=== PATIENT | female | born 1950 | race Caucasian/White ===

== ENCOUNTER 2017-11-25 11:16 | Outpatient (CLI) | payer MEDICARE, MEDICAID ==
[~2017-11-25 11:16] MED LIST: ALBU2.5V13 NEB; ALBU8HFA PO; ATOR40TA PO; BLAC540C4 PO; BUPR300T54 PO; CLON1TAB9 PO; CLOP75TA15 PO; ECHI400C17 PO; GABA-341 PO; LEVE500T PO; LEVO100T PO; MONT10TA21 PO; NITR0.4T51 SL; OMEP-84 PO; TRAZ-91 PO; oxygen
== END 2017-11-25 23:59 | disposition home or self-care (01) ==
LOC: RAD 11:16
PROVIDERS: ATTEND Family Medicine
DX: J44.9 Chronic obstructive pulmonary disease, unspecified (principal); I10 Essential (primary) hypertension; F17.200 Nicotine dependence, unspecified, uncomplicated; Z86.73 Personal history of transient ischemic attack (TIA), and cerebral infarction without residual deficits
CPT/HCPCS: 70551

== ENCOUNTER 2017-11-25 13:23 | Emergency (ER) | payer MEDICARE, MEDICAID ==
[~2017-11-25] VITALS: Ht 175.3 cm; Wt 81.8 kg
[2017-11-25 13:44] LABS: BASOPHILS % (AUTO) 0 % (0-1); EOSINOPHILS % (AUTO) 0.5 % (0-6); HEMATOCRIT 35.2 % (35.0-45.0); HEMOGLOBIN 11.6 g/dl (12.0-16.0); LYMPHOCYTES # (AUTO) 1.5 X10'3 (1.1-4.8); LYMPHOCYTES % (AUTO) 22.1 % (21-51); MEAN CORPUSCULAR HEMOGLOBIN 29.6 PG (27.0-31.0); MEAN CORPUSCULAR VOLUME 89.6 FL (78-98); MEAN PLATELET VOLUME 8.8 FL (7.4-10.4); MONOCYTES # (AUTO) 0.5 X10'3 (0-0.9); MONOCYTES % (AUTO) 8.3 % (2-12); NEUTROPHILS # (AUTO) 4.6 X10'3 (1.8-7.7); NEUTROPHILS % (AUTO) 69.1 % (42-75); PLATELET COUNT 201 X10'3 (140-440); RED BLOOD COUNT 3.93 X10'6 (4.20-5.60); RED CELL DISTRIBUTION WIDTH 16.5 % (11.5-14.5); WHITE BLOOD COUNT 6.6 X10'3 (4.5-11.0)
[2017-11-25 13:54] LABS: PARTIAL THROMBOPLASTIN TIME 26 SECONDS (22-32); PROTHROMBIN TIME 10.7 SECONDS (9.0-12.0)
[2017-11-25] MEDS ORDERED: nitroGLYCERIN 0.4mg SUBLingual tab SL PRN (13:55)
[2017-11-25] MEDS ORDERED: aspirin 81mg tab.chew PO ONE (13:55)
[2017-11-25 14:00] LABS: ALANINE AMINOTRANSFERASE 31 U/L (12-78); ALBUMIN 3.7 G/DL (3.4-5.0); ALBUMIN/GLOBULIN RATIO 1.3 (1.1-1.5); ALKALINE PHOSPHATASE 77 IU/L (46-116); ANION GAP 5 (8-16); ASPARTATE AMINO TRANSFERASE 37 U/L (10-37); BILIRUBIN,TOTAL 0.4 MG/DL (0.1-1.0); BLOOD UREA NITROGEN 13 MG/DL (7-18); BUN/CREATININE RATIO 12.4 (6.6-38.0); CALCIUM 9.1 MG/DL (8.5-10.1); CHLORIDE 107 MMOL/L (99-107); CREATININE 1.05 MG/DL (0.40-0.90); GLUCOSE 97 MG/DL (70-104); POTASSIUM 3.8 MMOL/L (3.5-5.1); SODIUM 140 MMOL/L (135-145); TOTAL CARBON DIOXIDE 27.6 MMOL/L (24-32); TOTAL PROTEIN 6.5 G/DL (6.4-8.2); eGFR 52 ML/MIN
[2017-11-25] MEDS ORDERED: LORazepam 2 mg/ml vial IV ONE (14:15)
[2017-11-25 17:18] VITALS: BP 138/78
== END 2017-11-25 17:21 | disposition home or self-care (01) ==
LOC: ER 13:23
DX: R07.9 Chest pain, unspecified (principal); I10 Essential (primary) hypertension; J44.9 Chronic obstructive pulmonary disease, unspecified; Z90.49 Acquired absence of other specified parts of digestive tract; Z88.8 Allergy status to other drugs, medicaments and biological substances; Z79.899 Other long term (current) drug therapy
CPT/HCPCS: 36415; 71045; 80053; 84484; 85025; 85610; 85730; 93005; 96374; 99285; J2060

== ENCOUNTER 2017-12-31 20:18 | Inpatient (IN) | payer MEDICARE, MEDICAID ==
[~2017-12-31] VITALS: Ht 170.2 cm; Wt 90.0 kg
[2017-12-31 20:55] LABS: BASOPHILS % (AUTO) 0.2 % (0-1); EOSINOPHILS # (AUTO) 0.1 X10'3 (0-0.9); EOSINOPHILS % (AUTO) 1.2 % (0-6); HEMOGLOBIN 10.6 g/dl (12.0-16.0); LYMPHOCYTES # (AUTO) 1.4 X10'3 (1.1-4.8); LYMPHOCYTES % (AUTO) 24.9 % (21-51); MEAN CORPUSCULAR HEMOGLOBIN 30.5 PG (27.0-31.0); MEAN CORPUSCULAR VOLUME 92.6 FL (78-98); MEAN PLATELET VOLUME 8.2 FL (7.4-10.4); MONOCYTES # (AUTO) 0.5 X10'3 (0-0.9); NEUTROPHILS # (AUTO) 3.8 X10'3 (1.8-7.7); NEUTROPHILS % (AUTO) 65.7 % (42-75); PLATELET COUNT 212 X10'3 (140-440); RED BLOOD COUNT 3.46 X10'6 (4.20-5.60); RED CELL DISTRIBUTION WIDTH 20.3 % (11.5-14.5); WHITE BLOOD COUNT 5.7 X10'3 (4.5-11.0)
[2017-12-31 21:05] LABS: INR 1.1 INR; PARTIAL THROMBOPLASTIN TIME 26 SECONDS (22-32); PROTHROMBIN TIME 10.9 SECONDS (9.0-12.0)
[2017-12-31 21:10] LABS: ALANINE AMINOTRANSFERASE 18 U/L (12-78); ALBUMIN 3.4 G/DL (3.4-5.0); ALBUMIN/GLOBULIN RATIO 1.3 (1.1-1.5); ALKALINE PHOSPHATASE 75 IU/L (46-116); ANION GAP 6 (8-16); ASPARTATE AMINO TRANSFERASE 19 U/L (10-37); BILIRUBIN,TOTAL 0.3 MG/DL (0.1-1.0); BLOOD UREA NITROGEN 17 MG/DL (7-18); BUN/CREATININE RATIO 15.2 (6.6-38.0); CALCIUM 8.8 MG/DL (8.5-10.1); CHLORIDE 108 MMOL/L (99-107); CREATININE 1.12 MG/DL (0.40-0.90); GLUCOSE 96 MG/DL (70-104); POTASSIUM 3.8 MMOL/L (3.5-5.1); SODIUM 143 MMOL/L (135-145); TOTAL CARBON DIOXIDE 29.3 MMOL/L (24-32); TOTAL PROTEIN 6.1 G/DL (6.4-8.2); eGFR 49 ML/MIN
[2017-12-31 21:28] LABS: ANISOCYTOSIS 2+; MICROCYTOSIS 1+; PLATELET ESTIMATE NORMAL; POLYCHROMASIA 1+
[2017-12-31 21:29] LABS: ELLIPTOCYTES FEW; SPHEROCYTES 1+
[2017-12-31] MEDS ORDERED: morphine 4 MG/ML inj SYRINge IV ONE (22:00)
[2017-12-31] MEDS ORDERED: LEVE750T6 PO (22:08)
[2017-12-31] MEDS ORDERED: FERR325T35 PO (22:08)
[2017-12-31] MEDS ORDERED: TRAZ-219 PO (22:08)
[2017-12-31] MEDS ORDERED: ALBU18HF2 INH (22:08)
[2017-12-31] MEDS ORDERED: ondansetron/PF 4mg/2ml inj IV PRN (23:50)
[2017-12-31] MEDS ORDERED: bisacodyl 10mg suppository rectal RC PRN (23:50)
[2017-12-31] MEDS ORDERED: mag hydrox/Alum hydrox/simeth 30ml oral suspension PO PRN (23:50)
[2017-12-31] MEDS ORDERED: magnesium 4gm in 100ml NS 100 ML IV PRN (23:50)
[2017-12-31] MEDS ORDERED: potassium Cl 40MEQ/NS 500ml 500 ML IV PRN ×2 (23:50)
[2017-12-31] MEDS ORDERED: magnesium 1gm/100ml D5W IVPB 100 ML IV PRN (23:50)
[2017-12-31] MEDS ORDERED: acetaminophen 325mg tablet PO PRN (23:50)
[2017-12-31] MEDS ORDERED: albuterol 1.25 MG/3 ML (1/2 strength) nebule NEB PRN (23:50)
[2017-12-31] MEDS ORDERED: potassium Cl 20 mEq SR tablet PO PRN ×2 (23:50)
[2017-12-31] MEDS ORDERED: morphine 4 MG/ML inj SYRINge IV PRN (23:50)
[2017-12-31] MEDS ORDERED: nitroGLYCERIN 0.4mg SUBLingual tab SL PRN (23:55)
[2018-01-01] VITALS (12 sets, daily range): BP systolic 93–131; BP diastolic 48–71
[2018-01-01] MEDS ORDERED: nitroGLYCERIN 0.4mg SUBLingual tab SL PRN
[2018-01-01] MEDS ORDERED: metoprolol tartrate 1mg/ml inj IV PRN
[2018-01-01] MEDS ORDERED: CAFFEINE CITRATE 60 MG/3 ML injection vial IV PRN
[2018-01-01] MEDS ORDERED: regadenoson 0.4mg/5ml syringe IV PRN
[2018-01-01] MEDS ORDERED: pantoprazole 40 MG vial IV ONE (00:05)
[2018-01-01] MEDS ORDERED: albuterol 2.5 MG/3 ML nebule NEB PRN (00:09)
[2018-01-01] MEDS: morphine 4 MG/ML inj SYRINge IV PRN ×3 (00:54→11:33)
[2018-01-01] MEDS ORDERED: traZODone 150mg tablet PO ONE (01:10)
[2018-01-01 03:06] LABS: BASOPHILS % (AUTO) 0.2 % (0-1); EOSINOPHILS # (AUTO) 0.1 X10'3 (0-0.9); EOSINOPHILS % (AUTO) 1.2 % (0-6); HEMATOCRIT 29.9 % (35.0-45.0); HEMOGLOBIN 9.8 g/dl (12.0-16.0); LYMPHOCYTES # (AUTO) 1.2 X10'3 (1.1-4.8); LYMPHOCYTES % (AUTO) 19.2 % (21-51); MEAN CORPUSCULAR HEMOGLOBIN 30.6 PG (27.0-31.0); MEAN CORPUSCULAR HGB CONC 32.8 % (33.0-36.5); MEAN CORPUSCULAR VOLUME 93.4 FL (78-98); MEAN PLATELET VOLUME 8.8 FL (7.4-10.4); MONOCYTES # (AUTO) 0.5 X10'3 (0-0.9); MONOCYTES % (AUTO) 7.3 % (2-12); NEUTROPHILS # (AUTO) 4.6 X10'3 (1.8-7.7); NEUTROPHILS % (AUTO) 72.1 % (42-75); PLATELET COUNT 179 X10'3 (140-440); RED CELL DISTRIBUTION WIDTH 20.4 % (11.5-14.5); WHITE BLOOD COUNT 6.3 X10'3 (4.5-11.0)
[2018-01-01 03:18] LABS: ALANINE AMINOTRANSFERASE 40 U/L (12-78); ALBUMIN/GLOBULIN RATIO 1.2 (1.1-1.5); ALKALINE PHOSPHATASE 70 IU/L (46-116); ANION GAP 5 (8-16); ASPARTATE AMINO TRANSFERASE 82 U/L (10-37); BILIRUBIN,TOTAL 0.5 MG/DL (0.1-1.0); BLOOD UREA NITROGEN 18 MG/DL (7-18); BUN/CREATININE RATIO 20.7 (6.6-38.0); CALCIUM 8.2 MG/DL (8.5-10.1); CHLORIDE 109 MMOL/L (99-107); CREATININE 0.87 MG/DL (0.40-0.90); GLUCOSE 90 MG/DL (70-104); POTASSIUM 3.7 MMOL/L (3.5-5.1); SODIUM 141 MMOL/L (135-145); TOTAL CARBON DIOXIDE 27.1 MMOL/L (24-32); TOTAL PROTEIN 5.5 G/DL (6.4-8.2); eGFR 65 ML/MIN
[2018-01-01] MEDS ORDERED: clonazePAM 1mg tablet PO SCH (08:00)
[2018-01-01] MEDS ORDERED: levetiracetam 250mg tablet PO SCH (08:00)
[2018-01-01] MEDS ORDERED: clopidogrel 75mg tablet PO SCH (08:00)
[2018-01-01] MEDS ORDERED: BLACK COHOSH PO SCH (08:00)
[2018-01-01] MEDS ORDERED: pantoprazole 40mg Tablet.DR PO SCH (08:00)
[2018-01-01] MEDS ORDERED: montelukast 10mg tablet PO SCH (08:00)
[2018-01-01] MEDS ORDERED: K and/or MAG REPLACEMENT MC SCH (08:00)
[2018-01-01] MEDS: gabapentin 100mg capsule PO SCH ×2 (08:01→13:01)
[2018-01-01] MEDS ORDERED: CAFFEINE CITRATE 60 MG/3 ML injection vial IV ONE (09:24)
[2018-01-01] MEDS ORDERED: regadenoson 0.4mg/5ml syringe IV ONE (09:24)
[2018-01-01] MEDS ORDERED: traZODone 150mg tablet PO SCH (20:00)
[2018-01-01] MEDS ORDERED: atorvastatin 20mg tablet PO SCH (21:00)
== END 2018-01-01 18:01 | disposition home or self-care (01) | DRG 313 ==
LOC: ER 20:19 → ED HOLD 23:48 → PCU 3S 01-01 00:25
PROVIDERS: ADMIT Family Medicine; ATTEND Internal Medicine
PROC: 4A02XM4 Measurement of Cardiac Total Activity, External Approach (ICD-10-PCS; principal; 2018-01-01)
PROC: 3E033HZ Introduction of Radioactive Substance into Peripheral Vein, Percutaneous Approach (ICD-10-PCS; 2018-01-01)
DX: R07.89 Other chest pain (principal); I50.20 Unspecified systolic (congestive) heart failure; G40.909 Epilepsy, unspecified, not intractable, without status epilepticus; I11.0 Hypertensive heart disease with heart failure; I25.10 Atherosclerotic heart disease of native coronary artery without angina pectoris; F41.9 Anxiety disorder, unspecified; G89.29 Other chronic pain; M54.9 Dorsalgia, unspecified; E89.0 Postprocedural hypothyroidism; J44.9 Chronic obstructive pulmonary disease, unspecified; K21.9 Gastro-esophageal reflux disease without esophagitis; F17.210 Nicotine dependence, cigarettes, uncomplicated; Z99.81 Dependence on supplemental oxygen; Z95.0 Presence of cardiac pacemaker; Z90.49 Acquired absence of other specified parts of digestive tract; Z79.899 Other long term (current) drug therapy; Z79.02 Long term (current) use of antithrombotics/antiplatelets; Z86.73 Personal history of transient ischemic attack (TIA), and cerebral infarction without residual deficits; Z82.5 Family history of asthma and other chronic lower respiratory diseases; Z80.6 Family history of leukemia; Z82.41 Family history of sudden cardiac death; Z82.49 Family history of ischemic heart disease and other diseases of the circulatory system; Z83.3 Family history of diabetes mellitus; Z71.6 Tobacco abuse counseling; D64.9 Anemia, unspecified
CPT/HCPCS: 36415; 71045; 78452; 80053; 83735; 84484; 85025; 85610; 85730; 87070; 93005; 93017; 94760; 96374; 97116; 97161; 97530; 99285; A9500; C9113; J2270; J2405

== ENCOUNTER 2018-05-07 02:00 | Inpatient (IN) | payer MEDICARE, MEDICAID ==
[~2018-05-07] VITALS: Ht 170.2 cm; Wt 86.2 kg
--- NOTE | 2018-05-07 01:55 | NUR ---
Report given to me from the nurse from [facility]; Kiersten VELASCO and I gave verbal report to Cally VELASCO.
[~2018-05-07 02:00] MED LIST changes: +ALBU18HF2 INH; -BUPR300T54 PO; -ECHI400C17 PO; +FERR325T35 PO; -LEVE500T PO; +LEVE750T6 PO; -LEVO100T PO; +TRAZ-219 PO; -TRAZ-91 PO
[2018-05-07 02:30] VITALS: BP 101/62
--- NOTE | 2018-05-07 02:30 | NUR ---
Patient brought to room and placed in bed from [facility]. Patient states 8/10 pain in her R ankle and knee from fall. Called MD to inform him that she was here from [facility] and that orders needed to be written for admit.
[2018-05-07] MEDS ORDERED: levoFLOXACIN 750MG TABLET PO STA (03:08)
[2018-05-07] MEDS ORDERED: normal saline 1000ml 1,000 ML IV SCH (03:08)
[2018-05-07] MEDS ORDERED: metoclopramide 5 mg/ml inj IV PRN (03:10)
[2018-05-07] MEDS ORDERED: ondansetron/PF 4mg/2ml inj IV PRN (03:10)
[2018-05-07] MEDS ORDERED: diphenhydrAMINE 50 mg/ml inj IV PRN (03:10)
[2018-05-07] MEDS ORDERED: mag hydrox/Alum hydrox/simeth 30ml oral suspension PO PRN (03:10)
[2018-05-07] MEDS ORDERED: acetaminophen 650mg rectal suppository RC PRN (03:10)
[2018-05-07] MEDS ORDERED: HYDROmorphone 1 mg/ml syringe IV PRN (03:10)
[2018-05-07] MEDS ORDERED: acetaminophen 325mg tablet PO PRN (03:10)
[2018-05-07] MEDS ORDERED: bisacodyl 10mg suppository rectal RC PRN (03:10)
[2018-05-07] MEDS ORDERED: magnesium hydroxide 30ml (MOM) UD suspension PO PRN (03:10)
[2018-05-07] MEDS: HYDROcodone/acetaminophen 5mg/325mg tablet PO PRN ×3 (03:42→19:33)
[2018-05-07] MEDS ORDERED: OMEP-50 PO (05:16)
[2018-05-07] MEDS ORDERED: BENZ-49 PO (05:16)
[2018-05-07] MEDS ORDERED: CLOP75TA35 PO (05:16)
[2018-05-07] MEDS ORDERED: MONT10TA24 PO (05:16)
[2018-05-07] MEDS ORDERED: GABA-530 PO (05:16)
[2018-05-07] MEDS ORDERED: LEVO112T5 PO (05:16)
[2018-05-07] MEDS ORDERED: ATOR40TA72 PO (05:16)
[2018-05-07] MEDS ORDERED: CLON0.5T12 PO (05:16)
[2018-05-07] MEDS ORDERED: LEVE750T PO (05:16)
[2018-05-07] MEDS ORDERED: AZIT250T27 PO (05:16)
--- NOTE | 2018-05-07 06:00 | NUR ---
Patient in room ORTHO 4012. I have received report from ROD Alamo and had the opportunity to ask questions and assume patient care.
[2018-05-07] MEDS ORDERED: benzonatate 100mg capsule PO PRN (06:15)
--- NOTE | 2018-05-07 06:50 | NUR ---
Problems reprioritized. Patient report given, questions answered & plan of care reviewed with ROD Yanez.
[2018-05-07 07:30] LABS: CLARITY,URINE CLEAR (Clear); COLOR,URINE YELLOW (Yellow); GLUCOSE, URINE NEGATIVE (Neg); KETONES,URINE NEGATIVE (Neg); LEUKOCYTE ESTERASE ,URINE TRACE (Neg); NITRITES, URINE NEGATIVE (Neg); OCCULT BLOOD,URINE SMALL (Neg); PROTEIN,URINE 30 mg/dl (Neg); UROBILINOGEN,URINE 0.2 E.U/dL (0.2-1.0)
[2018-05-07 07:46] LABS: BACTERIA,URINE FEW /HPF (Neg); MUCUS STRANDS FEW /LPF (Neg); RBC,URINE 0-2 /HPF (0-2); SQUAMOUS EPITHELIAL CELL,UR FEW /LPF (FEW); UA COLLECTION TYPE NON-SPECIFIED
[2018-05-07] MEDS: docusate sod 100mg capsule PO SCH ×2 (08:00→20:00)
[2018-05-07 09:05] LABS: MAGNESIUM 1.9 MG/DL (1.5-2.4); PHOSPHORUS 3.5 MG/DL (2.3-4.5)
[2018-05-07] MEDS: levetiracetam 250mg tablet PO SCH ×2 (09:18→19:32)
[2018-05-07] MEDS: atorvastatin 20mg tablet PO SCH (09:18)
[2018-05-07] MEDS: clonazePAM 0.5mg tablet PO SCH ×2 (09:18→19:32)
[2018-05-07] MEDS: montelukast 10mg tablet PO SCH (09:19)
[2018-05-07] MEDS: gabapentin 100mg capsule PO SCH ×3 (09:19→19:32)
[2018-05-07] MEDS: levoTHYROXINE 112mcg tablet PO SCH (09:20)
[2018-05-07] MEDS: nicotine 21mg patch - 24 hr TD SCH (09:20)
[2018-05-07] MEDS: pantoprazole 40mg Tablet.DR PO SCH (09:30)
[2018-05-07 09:37] LABS: INR 1.1 INR; PARTIAL THROMBOPLASTIN TIME 27 SECONDS (22-32); PROTHROMBIN TIME 10.9 SECONDS (9.0-12.0)
[2018-05-07 10:00] VITALS: BP 126/64
[2018-05-07] MEDS: oseltamivir phos 75mg capsule PO SCH ×2 (10:25→19:32)
[2018-05-07] MEDS ORDERED: levoFLOXACIN 750MG TABLET PO ONE (11:00)
[2018-05-07] MEDS: morphine 4 MG/ML inj SYRINge IV PRN ×2 (12:16→22:00)
[2018-05-07] MEDS ORDERED: ipratropium/albuterol 3ml nebule NEB PRN (16:05)
[2018-05-07 18:00] VITALS: BP 108/50
--- NOTE | 2018-05-07 18:28 | NUR ---
Patient in room ORTHO 4012. I have received report from ROD Yanez and had the opportunity to ask questions and assume patient care.
--- NOTE | 2018-05-07 19:14 | NUR ---
Problems reprioritized. Patient report given, questions answered & plan of care reviewed with ROD Alamo.
[2018-05-07] MEDS: lactobacillus rhamnosus 10,000 MMU CELLS/CAPSULE PO SCH (19:31)
[2018-05-07] MEDS: ipratropium/albuterol 3ml nebule NEB SCH ×2 (19:49→23:23)
[2018-05-07] MEDS ORDERED: ipratropium/albuterol 3ml nebule NEB SCH (20:00)
[2018-05-07 22:00] VITALS: BP 126/70
[2018-05-08] MEDS: HYDROcodone/acetaminophen 5mg/325mg tablet PO PRN ×2 (01:36→18:04)
[2018-05-08] MEDS: ipratropium/albuterol 3ml nebule NEB SCH ×6 (03:26→23:32)
[2018-05-08 06:00] VITALS: BP 140/70
[2018-05-08] MEDS: acetaminophen 325mg tablet PO PRN ×2 (06:53→16:48)
[2018-05-08 07:38] LABS: BASOPHILS % (AUTO) 0.2 % (0-1); EOSINOPHILS % (AUTO) 0 % (0-6); HEMATOCRIT 28.1 % (35.0-45.0); HEMOGLOBIN 8.9 g/dl (12.0-16.0); LYMPHOCYTES % (AUTO) 21.7 % (21-51); MEAN CORPUSCULAR HEMOGLOBIN 25.7 PG (27.0-31.0); MEAN CORPUSCULAR HGB CONC 31.7 % (33.0-36.5); MEAN CORPUSCULAR VOLUME 81.1 FL (78-98); MEAN PLATELET VOLUME 8.7 FL (7.4-10.4); MONOCYTES # (AUTO) 0.6 X10'3 (0-0.9); MONOCYTES % (AUTO) 12.6 % (2-12); NEUTROPHILS # (AUTO) 2.9 X10'3 (1.8-7.7); NEUTROPHILS % (AUTO) 65.5 % (42-75); PLATELET COUNT 183 X10'3 (140-440); RED BLOOD COUNT 3.46 X10'6 (4.20-5.60); RED CELL DISTRIBUTION WIDTH 17.3 % (11.5-14.5); WHITE BLOOD COUNT 4.5 X10'3 (4.5-11.0)
[2018-05-08 07:55] LABS: ANION GAP 7 (8-16); BLOOD UREA NITROGEN 8 MG/DL (7-18); BUN/CREATININE RATIO 8.2 (6.6-38.0); CALCIUM 7.8 MG/DL (8.5-10.1); CHLORIDE 103 MMOL/L (99-107); CREATININE 0.98 MG/DL (0.40-0.90); GLUCOSE 94 MG/DL (70-104); POTASSIUM 3.4 MMOL/L (3.5-5.1); SODIUM 139 MMOL/L (135-145); TOTAL CARBON DIOXIDE 28.8 MMOL/L (24-32); eGFR 57 ML/MIN
--- NOTE | 2018-05-08 08:19 | NUR ---
PT REFUSED 07 SVN TX
[2018-05-08] MEDS: levoFLOXACIN-Levaquin 750MG/D5 150 ML IV SCH (08:50)
[2018-05-08] MEDS: docusate sod 100mg capsule PO SCH ×2 (08:57→20:48)
[2018-05-08] MEDS: levetiracetam 250mg tablet PO SCH ×2 (08:57→20:48)
[2018-05-08] MEDS: lactobacillus rhamnosus 10,000 MMU CELLS/CAPSULE PO SCH ×2 (08:57→20:48)
[2018-05-08] MEDS: pantoprazole 40mg Tablet.DR PO SCH (08:58)
[2018-05-08] MEDS: atorvastatin 20mg tablet PO SCH (08:58)
[2018-05-08] MEDS: clonazePAM 0.5mg tablet PO SCH ×2 (08:58→20:48)
[2018-05-08] MEDS: gabapentin 100mg capsule PO SCH ×3 (08:58→20:48)
[2018-05-08] MEDS: levoTHYROXINE 112mcg tablet PO SCH (08:58)
[2018-05-08] MEDS: nicotine 21mg patch - 24 hr TD SCH (08:59)
[2018-05-08] MEDS: montelukast 10mg tablet PO SCH (09:00)
[2018-05-08] MEDS: oseltamivir phos 75mg capsule PO SCH ×2 (09:11→20:49)
--- NOTE | 2018-05-08 11:32 | NUR ---
PT REFUSED 1100 SVN TX
[2018-05-08 18:00] VITALS: BP 115/57
--- NOTE | 2018-05-08 18:30 | NUR ---
Patient in room ORTHO 4012. I have received report from ROD Yanez and had the opportunity to ask questions and assume patient care.
--- NOTE | 2018-05-08 18:58 | NUR ---
Problems reprioritized. Patient report given, questions answered & plan of care reviewed with Cally Kay RN.
[2018-05-08] MEDS ORDERED: magnesium Cl slow-release 64mg tablet PO PRN (20:40)
[2018-05-08] MEDS ORDERED: potassium Cl 40MEQ/NS 500ml 500 ML IV PRN ×2 (20:40)
[2018-05-08] MEDS ORDERED: potassium Cl 20 mEq SR tablet PO PRN (20:40)
[2018-05-08] MEDS ORDERED: magnesium 4gm in 100ml NS 100 ML IV PRN (20:40)
[2018-05-08] MEDS: potassium Cl 20 mEq SR tablet PO PRN (20:57)
[2018-05-08] MEDS: HYDROcodone/acetaminophen 10/325mg tab PO PRN (20:57)
[2018-05-08 22:00] VITALS: BP 90/51
[2018-05-09] MEDS: diphenhydrAMINE 25mg capsule PO PRN ×2 (00:26→15:04)
[2018-05-09] MEDS: potassium Cl 20 mEq SR tablet PO PRN (00:26)
[2018-05-09] MEDS: ipratropium/albuterol 3ml nebule NEB SCH ×6 (03:31→23:08)
[2018-05-09] MEDS: HYDROcodone/acetaminophen 10/325mg tab PO PRN ×3 (04:34→20:05)
[2018-05-09 06:00] VITALS: BP 93/56
[2018-05-09 06:56] LABS: BASOPHILS % (AUTO) 0.3 % (0-1); EOSINOPHILS % (AUTO) 0.1 % (0-6); HEMATOCRIT 27.8 % (35.0-45.0); HEMOGLOBIN 8.7 g/dl (12.0-16.0); LYMPHOCYTES # (AUTO) 1.4 X10'3 (1.1-4.8); LYMPHOCYTES % (AUTO) 24.9 % (21-51); MEAN CORPUSCULAR HEMOGLOBIN 25.9 PG (27.0-31.0); MEAN CORPUSCULAR HGB CONC 31.4 % (33.0-36.5); MEAN CORPUSCULAR VOLUME 82.4 FL (78-98); MEAN PLATELET VOLUME 8.4 FL (7.4-10.4); MONOCYTES # (AUTO) 0.5 X10'3 (0-0.9); MONOCYTES % (AUTO) 8.4 % (2-12); NEUTROPHILS # (AUTO) 3.6 X10'3 (1.8-7.7); NEUTROPHILS % (AUTO) 66.3 % (42-75); PLATELET COUNT 212 X10'3 (140-440); RED BLOOD COUNT 3.37 X10'6 (4.20-5.60); RED CELL DISTRIBUTION WIDTH 17.7 % (11.5-14.5); WHITE BLOOD COUNT 5.5 X10'3 (4.5-11.0)
[2018-05-09 07:11] LABS: ALBUMIN 2.9 G/DL (3.4-5.0); ANION GAP 7 (8-16); BLOOD UREA NITROGEN 9 MG/DL (7-18); BUN/CREATININE RATIO 9.3 (6.6-38.0); CHLORIDE 104 MMOL/L (99-107); CREATININE 0.97 MG/DL (0.40-0.90); GLUCOSE 100 MG/DL (70-104); SODIUM 140 MMOL/L (135-145); TOTAL CARBON DIOXIDE 29.3 MMOL/L (24-32); eGFR 57 ML/MIN
[2018-05-09] MEDS: levoFLOXACIN-Levaquin 750MG/D5 150 ML IV SCH (08:12)
[2018-05-09] MEDS: docusate sod 100mg capsule PO SCH ×2 (08:12→20:06)
[2018-05-09] MEDS: lactobacillus rhamnosus 10,000 MMU CELLS/CAPSULE PO SCH ×2 (08:12→20:05)
[2018-05-09] MEDS: montelukast 10mg tablet PO SCH (08:13)
[2018-05-09] MEDS: atorvastatin 20mg tablet PO SCH (08:13)
[2018-05-09] MEDS: clonazePAM 0.5mg tablet PO SCH ×2 (08:13→20:06)
[2018-05-09] MEDS: levetiracetam 250mg tablet PO SCH ×2 (08:13→20:06)
[2018-05-09] MEDS: pantoprazole 40mg Tablet.DR PO SCH (08:13)
[2018-05-09] MEDS: gabapentin 100mg capsule PO SCH ×3 (08:13→20:06)
[2018-05-09] MEDS: oseltamivir phos 75mg capsule PO SCH ×2 (08:14→20:06)
[2018-05-09] MEDS: nicotine 21mg patch - 24 hr TD SCH (08:14)
[2018-05-09] MEDS: levoTHYROXINE 112mcg tablet PO SCH (08:14)
--- NOTE | 2018-05-09 09:45 | NUR ---
Paged Dr Villagomez, patient states did not come to her room yesterday to speak with her. Requested PT order or Ortho consult. No new orders at this time.
[2018-05-09 10:00] VITALS: BP 91/53
[2018-05-09 18:00] VITALS: BP 91/59
--- NOTE | 2018-05-09 18:16 | NUR ---
Bedside report to Wendie VELASCO,
--- NOTE | 2018-05-09 18:23 | NUR ---
REPORT REC'D FROM ROD DALY.
[2018-05-09 22:00] VITALS: BP 106/64
[2018-05-10] MEDS: ipratropium/albuterol 3ml nebule NEB SCH ×6 (03:00→23:46)
[2018-05-10 06:00] VITALS: BP 118/60
--- NOTE | 2018-05-10 06:40 | NUR ---
REPORT GIVEN TO ROD DE.
--- NOTE | 2018-05-10 06:42 | NUR ---
DISREGARD LAST NOTE, REPORT GIVEN TO ROD DALY.
[2018-05-10 07:13] LABS: BASOPHILS % (AUTO) 0.2 % (0-1); EOSINOPHILS % (AUTO) 0.7 % (0-6); HEMATOCRIT 25.7 % (35.0-45.0); HEMOGLOBIN 8.1 g/dl (12.0-16.0); LYMPHOCYTES # (AUTO) 1.2 X10'3 (1.1-4.8); MEAN CORPUSCULAR HEMOGLOBIN 25.6 PG (27.0-31.0); MEAN CORPUSCULAR HGB CONC 31.5 % (33.0-36.5); MEAN CORPUSCULAR VOLUME 81.4 FL (78-98); MEAN PLATELET VOLUME 8.9 FL (7.4-10.4); MONOCYTES # (AUTO) 0.4 X10'3 (0-0.9); MONOCYTES % (AUTO) 7.6 % (2-12); NEUTROPHILS # (AUTO) 3.7 X10'3 (1.8-7.7); NEUTROPHILS % (AUTO) 69.5 % (42-75); PLATELET COUNT 157 X10'3 (140-440); RED BLOOD COUNT 3.16 X10'6 (4.20-5.60); RED CELL DISTRIBUTION WIDTH 17.4 % (11.5-14.5); WHITE BLOOD COUNT 5.3 X10'3 (4.5-11.0)
[2018-05-10 07:19] LABS: ALBUMIN 2.7 G/DL (3.4-5.0); ANION GAP 6 (8-16); BLOOD UREA NITROGEN 8 MG/DL (7-18); BUN/CREATININE RATIO 9.8 (6.6-38.0); CALCIUM 8.3 MG/DL (8.5-10.1); CHLORIDE 101 MMOL/L (99-107); CREATININE 0.82 MG/DL (0.40-0.90); GLUCOSE 105 MG/DL (70-104); POTASSIUM 4.1 MMOL/L (3.5-5.1); SODIUM 137 MMOL/L (135-145); TOTAL CARBON DIOXIDE 30.1 MMOL/L (24-32); eGFR 70 ML/MIN
[2018-05-10] MEDS: docusate sod 100mg capsule PO SCH ×2 (09:04→20:06)
[2018-05-10] MEDS: atorvastatin 20mg tablet PO SCH (09:05)
[2018-05-10] MEDS: levetiracetam 250mg tablet PO SCH ×2 (09:05→20:06)
[2018-05-10] MEDS: clonazePAM 0.5mg tablet PO SCH ×2 (09:05→20:05)
[2018-05-10] MEDS: montelukast 10mg tablet PO SCH (09:05)
[2018-05-10] MEDS: lactobacillus rhamnosus 10,000 MMU CELLS/CAPSULE PO SCH ×2 (09:05→20:05)
[2018-05-10] MEDS: gabapentin 100mg capsule PO SCH ×3 (09:06→20:05)
[2018-05-10] MEDS: nicotine 21mg patch - 24 hr TD SCH (09:06)
[2018-05-10] MEDS: oseltamivir phos 75mg capsule PO SCH ×2 (09:06→20:05)
[2018-05-10] MEDS: levoTHYROXINE 112mcg tablet PO SCH (09:06)
[2018-05-10] MEDS: pantoprazole 40mg Tablet.DR PO SCH (09:06)
[2018-05-10 10:30] VITALS: BP 117/59
[2018-05-10] MEDS: levoFLOXACIN 750MG TABLET PO SCH (12:24)
[2018-05-10] MEDS ORDERED: TAM75C PO ×2 (13:14→13:31)
[2018-05-10] MEDS ORDERED: HYDR-4383 PO (13:14)
[2018-05-10] MEDS ORDERED: LEVO750T46 PO (13:14)
[2018-05-10 18:00] VITALS: BP 107/64
[2018-05-10] MEDS: temazepam 15mg capsule PO PRN (20:08)
[2018-05-10] MEDS: HYDROcodone/acetaminophen 10/325mg tab PO PRN (21:56)
[2018-05-10 22:00] VITALS: BP 83/46
--- NOTE | 2018-05-10 22:28 | NUR ---
yellow scored round tablet with E 63, found in pt bed. Clonazepam 0.5mg identified. The medication is given BID and therefore this RN does not know whether it is from 0800 or 1999. will waste with second RN, Katerina Alamo
[2018-05-11 01:42] VITALS: BP 82/51
--- NOTE | 2018-05-11 01:43 | NUR ---
BP is running low 82/51., HR 67, map 62. hgb 8.2, will give one time bolus 500ml NS.
[2018-05-11] MEDS: ipratropium/albuterol 3ml nebule NEB SCH ×6 (03:34→23:55)
[2018-05-11] MEDS: HYDROcodone/acetaminophen 10/325mg tab PO PRN ×2 (03:47→20:22)
[2018-05-11 03:48] VITALS: BP 96/61
--- NOTE | 2018-05-11 04:10 | NUR ---
gave 500ml NS bolus, BP 96/61 now.
[2018-05-11 06:00] VITALS: BP 88/54
--- NOTE | 2018-05-11 06:15 | NUR ---
Patient in room ORTHO 4012. I have received report from ROD Pressley and had the opportunity to ask questions and assume patient care.
--- NOTE | 2018-05-11 06:32 | NUR ---
REPORT GIVEN TO ROD CONNELL.
[2018-05-11 06:54] LABS: BASOPHILS % (AUTO) 0 % (0-1); EOSINOPHILS % (AUTO) 0.9 % (0-6); HEMATOCRIT 25.1 % (35.0-45.0); LYMPHOCYTES # (AUTO) 1.1 X10'3 (1.1-4.8); LYMPHOCYTES % (AUTO) 22.2 % (21-51); MEAN CORPUSCULAR HGB CONC 31.8 % (33.0-36.5); MEAN CORPUSCULAR VOLUME 81.5 FL (78-98); MEAN PLATELET VOLUME 9.4 FL (7.4-10.4); MONOCYTES # (AUTO) 0.4 X10'3 (0-0.9); MONOCYTES % (AUTO) 6.9 % (2-12); NEUTROPHILS # (AUTO) 3.6 X10'3 (1.8-7.7); PLATELET COUNT 148 X10'3 (140-440); RED BLOOD COUNT 3.08 X10'6 (4.20-5.60); RED CELL DISTRIBUTION WIDTH 17.4 % (11.5-14.5); WHITE BLOOD COUNT 5.1 X10'3 (4.5-11.0)
[2018-05-11] MEDS: nicotine 21mg patch - 24 hr TD SCH (08:00)
[2018-05-11] MEDS: lactobacillus rhamnosus 10,000 MMU CELLS/CAPSULE PO SCH ×2 (08:00→20:18)
[2018-05-11] MEDS: docusate sod 100mg capsule PO SCH ×2 (08:08→20:17)
[2018-05-11] MEDS: atorvastatin 20mg tablet PO SCH (08:09)
[2018-05-11] MEDS: levetiracetam 250mg tablet PO SCH ×2 (08:09→20:17)
[2018-05-11] MEDS: pantoprazole 40mg Tablet.DR PO SCH (08:09)
[2018-05-11] MEDS: clonazePAM 0.5mg tablet PO SCH ×2 (08:09→20:17)
[2018-05-11] MEDS: gabapentin 100mg capsule PO SCH ×3 (08:09→20:17)
[2018-05-11] MEDS: oseltamivir phos 75mg capsule PO SCH ×2 (08:10→20:18)
[2018-05-11] MEDS: montelukast 10mg tablet PO SCH (08:10)
[2018-05-11] MEDS: levoTHYROXINE 112mcg tablet PO SCH (08:10)
[2018-05-11 10:47] LABS: ANISOCYTOSIS 2+; MICROCYTOSIS 1+; PLATELET ESTIMATE NORMAL; POLYCHROMASIA 1+; TEAR DROP CELLS FEW
[2018-05-11 10:48] LABS: ELLIPTOCYTES 2+
[2018-05-11 10:49] LABS: SCHISTOCYTES FEW
[2018-05-11] MEDS: levoFLOXACIN 750MG TABLET PO SCH (11:14)
--- NOTE | 2018-05-11 12:14 | NUR ---
PAGER ID: [phone] MESSAGE: Lo Villagomez, this is Gloria on ortho #[id number], pt in room 4012A, Ms. Rodríguez does not remember why she is on Keppra. In report I was advised she has a hx of seizures.
--- NOTE | 2018-05-11 13:01 | NUR ---
missed svn tx with critical patient
--- NOTE | 2018-05-11 14:25 | NUR ---
Initial: Pt admit w/ PNA/flu PO 75-100% regular diet meeting needs. LBM 05/09 on colace. No nutrition concerns at this time. Rec: 1. continue regular diet 2. wt per rx Addendum: 05/11/18 at [address] Amended: Links added.
[2018-05-11 18:00] VITALS: BP 130/74
--- NOTE | 2018-05-11 18:20 | NUR ---
Problems reprioritized. Patient report given, questions answered & plan of care reviewed with Wendie VELASCO.
[2018-05-11 22:00] VITALS: BP 97/59
[2018-05-12 02:00] VITALS: BP 98/53
[2018-05-12] MEDS: ipratropium/albuterol 3ml nebule NEB SCH ×6 (02:33→23:46)
--- NOTE | 2018-05-12 04:31 | NUR ---
RN ENCOURAGED PT TO USE INCENTIVE SPIROMETER, SHE STATES THAT SHE "CAN'T DO IT, AND IT GOT THROWN IN THE TRASH." '
[2018-05-12] MEDS: HYDROcodone/acetaminophen 10/325mg tab PO PRN (05:18)
[2018-05-12 06:00] VITALS: BP 113/66
[2018-05-12 06:08] LABS: BASOPHILS % (AUTO) 0.1 % (0-1); EOSINOPHILS # (AUTO) 0.1 X10'3 (0-0.9); EOSINOPHILS % (AUTO) 0.9 % (0-6); HEMATOCRIT 27.5 % (35.0-45.0); HEMOGLOBIN 8.8 g/dl (12.0-16.0); LYMPHOCYTES # (AUTO) 1.2 X10'3 (1.1-4.8); LYMPHOCYTES % (AUTO) 20.3 % (21-51); MEAN CORPUSCULAR HEMOGLOBIN 26.1 PG (27.0-31.0); MEAN CORPUSCULAR VOLUME 81.5 FL (78-98); MONOCYTES # (AUTO) 0.3 X10'3 (0-0.9); MONOCYTES % (AUTO) 5.2 % (2-12); NEUTROPHILS # (AUTO) 4.2 X10'3 (1.8-7.7); NEUTROPHILS % (AUTO) 73.5 % (42-75); PLATELET COUNT 196 X10'3 (140-440); RED BLOOD COUNT 3.37 X10'6 (4.20-5.60); RED CELL DISTRIBUTION WIDTH 17.3 % (11.5-14.5); WHITE BLOOD COUNT 5.8 X10'3 (4.5-11.0)
--- NOTE | 2018-05-12 06:10 | NUR ---
Patient in room ORTHO 4012. I have received report from ROD Pressley and had the opportunity to ask questions and assume patient care.
--- NOTE | 2018-05-12 06:32 | NUR ---
REPORT GIVEN TO ROD CONNELL.
[2018-05-12] MEDS: nicotine 21mg patch - 24 hr TD SCH (08:00)
[2018-05-12] MEDS: lactobacillus rhamnosus 10,000 MMU CELLS/CAPSULE PO SCH ×2 (08:44→21:06)
[2018-05-12] MEDS: clonazePAM 0.5mg tablet PO SCH ×2 (08:44→21:06)
[2018-05-12] MEDS: pantoprazole 40mg Tablet.DR PO SCH (08:44)
[2018-05-12] MEDS: atorvastatin 20mg tablet PO SCH (08:44)
[2018-05-12] MEDS: levetiracetam 250mg tablet PO SCH ×2 (08:44→21:06)
[2018-05-12] MEDS: montelukast 10mg tablet PO SCH (08:44)
[2018-05-12] MEDS: gabapentin 100mg capsule PO SCH ×3 (08:44→21:06)
[2018-05-12] MEDS: levoTHYROXINE 112mcg tablet PO SCH (08:44)
[2018-05-12 10:00] VITALS: BP 92/60
[2018-05-12] MEDS: docusate sod 100mg capsule PO SCH ×2 (10:14→21:06)
[2018-05-12] MEDS: levoFLOXACIN 750MG TABLET PO SCH (11:51)
--- NOTE | 2018-05-12 18:15 | NUR ---
Problems reprioritized. Patient report given, questions answered & plan of care reviewed with Goldie Grace RN.
[2018-05-12 20:00] VITALS: BP 127/73
[2018-05-12] MEDS: temazepam 15mg capsule PO PRN (21:14)
[2018-05-12 23:00] VITALS: BP 136/78
[2018-05-13] MEDS: HYDROcodone/acetaminophen 10/325mg tab PO PRN ×3 (01:25→11:20)
[2018-05-13] MEDS: ipratropium/albuterol 3ml nebule NEB SCH ×4 (02:52→14:30)
[2018-05-13 06:00] VITALS: BP 107/69
--- NOTE | 2018-05-13 06:10 | NUR ---
Patient in room ORTHO 4012. I have received report from Goldie Grace RN and had the opportunity to ask questions and assume patient care.
[2018-05-13] MEDS: docusate sod 100mg capsule PO SCH (07:48)
[2018-05-13] MEDS: lactobacillus rhamnosus 10,000 MMU CELLS/CAPSULE PO SCH (07:48)
[2018-05-13] MEDS: montelukast 10mg tablet PO SCH (07:48)
[2018-05-13] MEDS: levetiracetam 250mg tablet PO SCH (07:48)
[2018-05-13] MEDS: gabapentin 100mg capsule PO SCH ×2 (07:48→13:52)
[2018-05-13] MEDS: levoTHYROXINE 112mcg tablet PO SCH (07:48)
[2018-05-13] MEDS: clonazePAM 0.5mg tablet PO SCH (07:48)
[2018-05-13] MEDS: pantoprazole 40mg Tablet.DR PO SCH (07:48)
[2018-05-13] MEDS: atorvastatin 20mg tablet PO SCH (07:48)
[2018-05-13] MEDS: nicotine 21mg patch - 24 hr TD SCH (07:51)
[2018-05-13] MEDS: levoFLOXACIN 750MG TABLET PO SCH (11:20)
--- NOTE | 2018-05-13 16:30 | NUR ---
Problems reprioritized. Patient report given, questions answered & plan of care reviewed with Isamar raymundo [facility].
--- NOTE | 2018-05-13 18:15 | NUR ---
It was discovered that patient was still here she was to be picked up by [employer] at 1730 and she is still in her room waiting on oyster picker.
--- NOTE | 2018-05-13 18:27 | NUR ---
Report passed off to night time charge, pt has not been picked up yet. supervisor inspecting was scheduled for 17:30
[2018-05-13 18:40] VITALS: BP 127/74
--- NOTE | 2018-05-13 18:54 | NUR ---
[employer] is here to pick and shovel man patient at this time.
--- NOTE | 2018-05-13 19:00 | NUR ---
Patient d/c to [facility].
== END 2018-05-13 19:00 | DRG 562 ==
LOC: ORTHO 4S 02:00
PROVIDERS: ADMIT Family Medicine; ATTEND Internal Medicine
PROC: 2W3QX1Z Immobilization of Right Lower Leg using Splint (ICD-10-PCS; principal; 2018-05-07)
DX: S82.831A Other fracture of upper and lower end of right fibula, initial encounter for closed fracture (principal); I50.33 Acute on chronic diastolic (congestive) heart failure; J96.20 Acute and chronic respiratory failure, unspecified whether with hypoxia or hypercapnia; J44.1 Chronic obstructive pulmonary disease with (acute) exacerbation; E03.9 Hypothyroidism, unspecified; E78.5 Hyperlipidemia, unspecified; G40.909 Epilepsy, unspecified, not intractable, without status epilepticus; I11.0 Hypertensive heart disease with heart failure; I25.10 Atherosclerotic heart disease of native coronary artery without angina pectoris; J09.X2 Influenza due to identified novel influenza A virus with other respiratory manifestations; D64.9 Anemia, unspecified; F17.200 Nicotine dependence, unspecified, uncomplicated; K21.9 Gastro-esophageal reflux disease without esophagitis; F32.9 Major depressive disorder, single episode, unspecified; W18.39XA Other fall on same level, initial encounter; Z99.81 Dependence on supplemental oxygen; Z95.0 Presence of cardiac pacemaker; Z90.49 Acquired absence of other specified parts of digestive tract; Z88.1 Allergy status to other antibiotic agents; Z88.8 Allergy status to other drugs, medicaments and biological substances; Z79.899 Other long term (current) drug therapy; Z79.890 Hormone replacement therapy; Z86.79 Personal history of other diseases of the circulatory system; Z86.73 Personal history of transient ischemic attack (TIA), and cerebral infarction without residual deficits; Z82.5 Family history of asthma and other chronic lower respiratory diseases; Z83.3 Family history of diabetes mellitus; Z80.6 Family history of leukemia; Z71.6 Tobacco abuse counseling; Y93.89 Activity, other specified; Y92.89 Other specified places as the place of occurrence of the external cause; Y99.8 Other external cause status
CPT/HCPCS: 36415; 71045; 73564; 73610; 80048; 81001; 83605; 83735; 83880; 84100; 84439; 84443; 84480; 85025; 85610; 85730; 87040; 87070; 87088; 87502; 87503; 94640; 94760; 97110; 97116; 97162; 97530; G0378; J1956; J2270; J2405; J7030; Q0163

== ENCOUNTER 2021-10-04 14:18 | Inpatient (IN) | payer MEDICARE, MEDICAID ==
[2021-10-04] VITALS (7 sets, daily range): BP systolic 93–149; BP diastolic 49–76
[~2021-10-04] VITALS: Ht 165.1 cm; Wt 76.5 kg
[~2021-10-04 14:18] MED LIST changes: -ALBU18HF2 INH; -ALBU2.5V13 NEB; +ALBU8.5H17 INH; -ALBU8HFA PO; +AZIT-83 PO; -BLAC540C4 PO; +BUDE10.2 INH; +BUPR1PAT TOP; +CLON-528 PO; -CLON1TAB9 PO; -CLOP75TA15 PO; +CLOP75TA34 PO; +DEXA2TAB PO; -FERR325T35 PO; +FLUT16SP11 BOTHNARES; +FLUT1DIS15 INH; +FURO-150 PO; -GABA-341 PO; +GABA-530 PO; +IPRA3AMP31 IH; -LEVE750T6 PO; +LEVO100T PO; +LEVO75TA PO; +MELO-102 PO; -OMEP-84 PO; +PANT20TA18 PO; +POTA8CAP20 PO; +SERT25TA PO; +TIZA4CAP PO; -TRAZ-219 PO; +TRAZ-256 PO; -oxygen
[2021-10-04] MEDS ORDERED: IOHEXOL 350 MG/ML INFUS..BTL 125ML IV ONE (14:41)
[2021-10-04 14:47] LABS: BASOPHILS % (AUTO) 0.2 % (0-1); EOSINOPHILS # (AUTO) 0.1 X10'3 (0-0.9); EOSINOPHILS % (AUTO) 0.8 % (0-6); HEMATOCRIT 45.2 % (35.0-45.0); HEMOGLOBIN 14.5 g/dl (12.0-16.0); LYMPHOCYTES # (AUTO) 2.5 X10'3 (1.1-4.8); LYMPHOCYTES % (AUTO) 32.7 % (21-51); MEAN CORPUSCULAR HGB CONC 32.1 g/dL (33.0-36.5); MEAN CORPUSCULAR VOLUME 93.6 FL (78-98); MEAN PLATELET VOLUME 8.9 FL (7.4-10.4); MONOCYTES # (AUTO) 0.4 X10'3 (0-0.9); MONOCYTES % (AUTO) 5.5 % (2-12); NEUTROPHILS # (AUTO) 4.6 X10'3 (1.8-7.7); NEUTROPHILS % (AUTO) 60.8 % (42-75); PLATELET COUNT 211 X10'3 (140-440); RED BLOOD COUNT 4.83 X10'6 (4.20-5.60); RED CELL DISTRIBUTION WIDTH 14.7 % (11.5-14.5); WHITE BLOOD COUNT 7.5 X10'3 (4.5-11.0)
[2021-10-04 14:58] LABS: APTT 27 SECONDS (22-32)
[2021-10-04 15:01] LABS: ALANINE AMINOTRANSFERASE 208 U/L (12-78); ALBUMIN 4.2 G/DL (3.4-5.0); ALBUMIN/GLOBULIN RATIO 1.2 (1.1-1.5); ALKALINE PHOSPHATASE 194 IU/L (46-116); ANION GAP 10 (8-16); ASPARTATE AMINO TRANSFERASE 174 U/L (10-37); BILIRUBIN,TOTAL 0.9 MG/DL (0.1-1.0); BLOOD UREA NITROGEN 12 MG/DL (7-18); BUN/CREATININE RATIO 14.1 (6.6-38.0); CALCIUM 9.1 MG/DL (8.5-10.1); CHLORIDE 103 MMOL/L (99-107); CREATININE 0.85 MG/DL (0.40-0.90); GLUCOSE 114 MG/DL (70-104); POTASSIUM 3.5 MMOL/L (3.5-5.1); SODIUM 140 MMOL/L (135-145); TOTAL CARBON DIOXIDE 27.2 MMOL/L (24-32); TOTAL PROTEIN 7.6 G/DL (6.4-8.2); eGFR 66 ML/MIN
[2021-10-04 15:22] LABS: ABG BASE EXCESS -3.8 mmol/L (-2.0-2.0); ABG HCO3 23.4 mmol/L (22.0-26.0); ABG OXYGEN SATURATION 98.6 % (94-97); ABG PCO2 (T) 51.8 mmHg (32.0-45.0); ABG PO2 (T) 191.5 mmHg (75.0-100.0); ALLEN'S TEST POSITIVE; FCOHb 5.4 % (0.0-3.9); FMetHb 0.3 % (0.0-1.5); PEEP 5 cm H2O; RESPIRATORY RATE 16 b/min; TIDAL VOLUME 400 mL; TOTAL HEMOGLOBIN 12.8 G/dl (12.0-16.0)
[2021-10-04] MEDS: propofol 1000mg/100ml bottle 100 ML IV SCH (15:26)
[2021-10-04] MEDS ORDERED: aspirin 300mg supp.rect RC ONE (15:40)
[2021-10-04 16:17] LABS: TRIGLYCERIDES 116 MG/DL (20-135)
[2021-10-04] MEDS ORDERED: mag hydrox/Alum hydrox/simeth 30ml oral suspension PO PRN (17:15)
[2021-10-04] MEDS: normal saline 1000ml 1,000 ML IV SCH (17:44)
[2021-10-04 18:08] LABS: HEMOGLOBIN A1C 5.4 % (4.5-6.2)
[2021-10-04] MEDS ORDERED: FENTANYL-0.9 % NACL/PF 100 ML IV PRN (18:20)
[2021-10-04] MEDS ORDERED: levetiracetam inj 1,000 MG in normal saline 100ml IV soln 90 ML IV SCH (20:00)
[2021-10-04] MEDS ORDERED: levetiracetam inj 1,000 MG in normal saline 100ml IV soln 100 ML IV SCH (21:19)
[2021-10-04] MEDS: albuterol 2.5 MG/3 ML nebule NEB SCH (23:41)
[2021-10-05] VITALS (26 sets, daily range): BP systolic 88–164; BP diastolic 42–121
[2021-10-05] MEDS: propofol 1000mg/100ml bottle 100 ML IV SCH ×2 (00:09→07:36)
[2021-10-05 03:06] LABS: ALANINE AMINOTRANSFERASE 127 U/L (12-78); ALBUMIN 2.7 G/DL (3.4-5.0); ALBUMIN/GLOBULIN RATIO 1.1 (1.1-1.5); ALKALINE PHOSPHATASE 132 IU/L (46-116); ANION GAP 7 (8-16); ASPARTATE AMINO TRANSFERASE 92 U/L (10-37); BILIRUBIN,TOTAL 0.3 MG/DL (0.1-1.0); BLOOD UREA NITROGEN 11 MG/DL (7-18); BUN/CREATININE RATIO 15.7 (6.6-38.0); CHLORIDE 110 MMOL/L (99-107); CHOL/HDL RATIO 3.1 (0.00-4.99); CHOLESTEROL 122 MG/DL (0-200); GLUCOSE 106 MG/DL (70-104); HDL CHOLESTEROL 39 MG/DL (35-60); LDL CHOLESTEROL 68 MG/DL (50-100); MAGNESIUM 1.8 MG/DL (1.5-2.4); SODIUM 143 MMOL/L (135-145); TOTAL CARBON DIOXIDE 25.9 MMOL/L (24-32); TOTAL PROTEIN 5.1 G/DL (6.4-8.2); TRIGLYCERIDES 79 MG/DL (20-135); eGFR 83 ML/MIN
[2021-10-05 03:11] LABS: BASOPHILS % (AUTO) 0.1 % (0-1); EOSINOPHILS % (AUTO) 0.6 % (0-6); HEMATOCRIT 32.9 % (35.0-45.0); HEMOGLOBIN 10.9 g/dl (12.0-16.0); LYMPHOCYTES # (AUTO) 0.9 X10'3 (1.1-4.8); LYMPHOCYTES % (AUTO) 16.2 % (21-51); MEAN CORPUSCULAR HEMOGLOBIN 30.7 PG (27.0-31.0); MEAN CORPUSCULAR HGB CONC 33.1 g/dL (33.0-36.5); MEAN CORPUSCULAR VOLUME 92.7 FL (78-98); MONOCYTES # (AUTO) 0.5 X10'3 (0-0.9); MONOCYTES % (AUTO) 9.7 % (2-12); NEUTROPHILS # (AUTO) 4.1 X10'3 (1.8-7.7); NEUTROPHILS % (AUTO) 73.4 % (42-75); PLATELET COUNT 171 X10'3 (140-440); RED BLOOD COUNT 3.55 X10'6 (4.20-5.60); RED CELL DISTRIBUTION WIDTH 15.3 % (11.5-14.5); WHITE BLOOD COUNT 5.6 X10'3 (4.5-11.0)
[2021-10-05] MEDS: albuterol 2.5 MG/3 ML nebule NEB SCH ×2 (03:47→06:38)
[2021-10-05 04:36] LABS: ABG HCO3 20.2 mmol/L (22.0-26.0); ABG OXYGEN SATURATION 94.1 % (94-97); ABG PCO2 (T) 39.1 mmHg (32.0-45.0); ABG PO2 (T) 81.2 mmHg (75.0-100.0); ALLEN'S TEST POSITIVE; FCOHb 1.4 % (0.0-3.9); FMetHb 0.2 % (0.0-1.5); FO2Hb 92.6 % (94-97); PATIENT TEMPERATURE 37.6; PEEP 5 cm H2O; RESPIRATORY RATE 20 b/min; TIDAL VOLUME 400 mL; TOTAL HEMOGLOBIN 12.1 G/dl (12.0-16.0)
[2021-10-05] MEDS: potassium Cl 20mEq/100mL bag 100 ML IV SCH ×2 (04:58→07:39)
[2021-10-05] MEDS: normal saline 1000ml 1,000 ML IV SCH (07:33)
[2021-10-05] MEDS: pantoprazole 40MG/NS 100ML BAG 100 ML IV SCH (09:09)
[2021-10-05] MEDS: clopidogrel 75mg tablet PO SCH (09:09)
[2021-10-05] MEDS ORDERED: sodium phosphate inj. 30 MMOL in dextrose 5% water 500ml 500 ML IV PRN (10:00)
[2021-10-05] MEDS ORDERED: potassium Cl 20mEq/100mL bag 100 ML IV PRN (10:00)
[2021-10-05] MEDS ORDERED: magnesium 4gm in 100ml NS 100 ML IV PRN (10:00)
[2021-10-05] MEDS ORDERED: sodium phosphate inj. 15 MMOL in dextrose 5%-water 250 ML IV PRN (10:00)
[2021-10-05] MEDS ORDERED: Neutra Phos packet PO PRN (10:00)
[2021-10-05] MEDS ORDERED: potassium CL 10mEq/100ml bag 100 ML IV PRN (10:00)
[2021-10-05] MEDS ORDERED: magnesium 2GM in 50ml NS 50 ML IV PRN (10:00)
[2021-10-05] MEDS ORDERED: methylPREDNISolone sod succ 125mg/2ml vial IV ONE (10:10)
[2021-10-05] MEDS ORDERED: ipratropium/albuterol 3ml nebule NEB PRN (10:15)
[2021-10-05] MEDS ORDERED: racepinephrine 11.25mg/0.5ml nebule IH PRN ×2 (10:20→10:35)
[2021-10-05] MEDS: ipratropium/albuterol 3ml nebule NEB SCH ×4 (10:29→23:00)
[2021-10-05 11:06] LABS: CLARITY,URINE CLEAR (Clear); COLOR,URINE YELLOW (Yellow); GLUCOSE, URINE NEGATIVE (Neg); KETONES,URINE NEGATIVE (Neg); LEUKOCYTE ESTERASE ,URINE NEGATIVE (Neg); NITRITES, URINE NEGATIVE (Neg); OCCULT BLOOD,URINE TRACE-INTACT (Neg); PROTEIN,URINE TRACE mg/dl (Neg); UROBILINOGEN,URINE 0.2 E.U/dL (0.2-1.0)
[2021-10-05 11:14] LABS: UA COLLECTION TYPE FOLEY CATH
[2021-10-05 11:15] LABS: BACTERIA,URINE NONE SEEN /HPF (Neg); MUCUS STRANDS FEW /LPF (Neg); SQUAMOUS EPITHELIAL CELL,UR FEW /LPF (FEW); WBC,URINE 0-4 /HPF (0-4)
[2021-10-05] MEDS: azithromycin/NS 500mg/250ml 250 ML IV SCH (11:40)
[2021-10-05] MEDS: cefTRIAXone 1g/NS 100ml IVPB 100 ML IV SCH (11:40)
[2021-10-05] MEDS: methylPREDNISolone sod succ 125mg/2ml vial IV SCH (20:34)
[2021-10-05] MEDS ORDERED: LORA10TA7 PO (23:11)
[2021-10-05] MEDS ORDERED: SERT-153 PO (23:11)
[2021-10-05] MEDS ORDERED: TIZA4CAP PO (23:11)
[2021-10-05] MEDS ORDERED: PANT40TA54 PO (23:11)
[2021-10-05] MEDS ORDERED: FLUT1BLS11 PO ×2 (23:11→23:15)
[2021-10-05] MEDS ORDERED: IPRA3AMP31 IH (23:11)
[2021-10-05] MEDS ORDERED: POTA8CAP20 PO (23:11)
[2021-10-05] MEDS ORDERED: BLAC540C4 PO (23:11)
[2021-10-05] MEDS ORDERED: LEVO125T8 PO (23:11)
[2021-10-05] MEDS ORDERED: ATRIN IH (23:11)
[2021-10-05] MEDS ORDERED: TRAZ-251 PO (23:11)
[2021-10-05] MEDS ORDERED: UMEC62.5 IH (23:11)
[2021-10-05] MEDS ORDERED: CLOP75TA33 PO (23:11)
[2021-10-05] MEDS ORDERED: GABA300C PO (23:13)
[2021-10-06] VITALS (15 sets, daily range): BP systolic 146–185; BP diastolic 66–83
[2021-10-06] MEDS: mineral oil/petrolatum ophthal oint EACHEYE SCH ×2 (02:00→08:00)
[2021-10-06] MEDS: normal saline 1000ml 1,000 ML IV SCH (02:42)
[2021-10-06] MEDS: methylPREDNISolone sod succ 125mg/2ml vial IV SCH ×4 (02:47→20:48)
[2021-10-06 03:15] LABS: BASOPHILS % (AUTO) 0.1 % (0-1); EOSINOPHILS % (AUTO) 0 % (0-6); HEMATOCRIT 33.9 % (35.0-45.0); HEMOGLOBIN 10.8 g/dl (12.0-16.0); LYMPHOCYTES # (AUTO) 0.6 X10'3 (1.1-4.8); LYMPHOCYTES % (AUTO) 8.4 % (21-51); MEAN CORPUSCULAR HEMOGLOBIN 29.8 PG (27.0-31.0); MEAN CORPUSCULAR VOLUME 92.9 FL (78-98); MEAN PLATELET VOLUME 9.4 FL (7.4-10.4); MONOCYTES # (AUTO) 0.1 X10'3 (0-0.9); MONOCYTES % (AUTO) 1.7 % (2-12); NEUTROPHILS # (AUTO) 6.7 X10'3 (1.8-7.7); NEUTROPHILS % (AUTO) 89.8 % (42-75); PLATELET COUNT 176 X10'3 (140-440); RED BLOOD COUNT 3.64 X10'6 (4.20-5.60); RED CELL DISTRIBUTION WIDTH 14.8 % (11.5-14.5); WHITE BLOOD COUNT 7.5 X10'3 (4.5-11.0)
[2021-10-06 03:30] LABS: ALANINE AMINOTRANSFERASE 93 U/L (12-78); ALBUMIN 2.8 G/DL (3.4-5.0); ALKALINE PHOSPHATASE 121 IU/L (46-116); ANION GAP 4 (8-16); ASPARTATE AMINO TRANSFERASE 45 U/L (10-37); BILIRUBIN,TOTAL 0.4 MG/DL (0.1-1.0); BLOOD UREA NITROGEN 7 MG/DL (7-18); BUN/CREATININE RATIO 12.5 (6.6-38.0); CALCIUM 8.2 MG/DL (8.5-10.1); CHLORIDE 112 MMOL/L (99-107); CREATININE 0.56 MG/DL (0.40-0.90); GLUCOSE 138 MG/DL (70-104); PHOSPHORUS 3.2 MG/DL (2.3-4.5); POTASSIUM 3.8 MMOL/L (3.5-5.1); SODIUM 146 MMOL/L (135-145); TOTAL CARBON DIOXIDE 30.5 MMOL/L (24-32); TOTAL PROTEIN 5.6 G/DL (6.4-8.2); eGFR > 90 ML/MIN
[2021-10-06] MEDS: ipratropium/albuterol 3ml nebule NEB SCH ×6 (03:55→22:34)
[2021-10-06] MEDS ORDERED: ALBUTEROL INHALER 1 PUFF/90 MCG INHALER IH PRN (07:25)
[2021-10-06] MEDS ORDERED: nitroGLYCERIN 0.4mg SUBLingual tab SL PRN (07:25)
[2021-10-06] MEDS ORDERED: pantoprazole 40mg Tablet.DR PO SCH (08:00)
[2021-10-06] MEDS ORDERED: non-formulary drug (Fluticasone Propion/Salmeterol (Wixela 500-50 Inhub) 1 PUFF) PO SCH (08:00)
[2021-10-06] MEDS ORDERED: clopidogrel 75mg tablet PO SCH (08:00)
[2021-10-06] MEDS ORDERED: fluticasone nasal spray 16GM bottle NS SCH (08:00)
[2021-10-06] MEDS ORDERED: ipratropium/albuterol 3ml nebule IH SCH (08:00)
[2021-10-06] MEDS ORDERED: BLACK COHOSH PO SCH (08:00)
[2021-10-06] MEDS: Meloxicam 15 MG TAB PO SCH (08:00)
[2021-10-06] MEDS: pantoprazole 40MG/NS 100ML BAG 100 ML IV SCH (09:29)
[2021-10-06] MEDS: azithromycin/NS 500mg/250ml 250 ML IV SCH (09:29)
[2021-10-06] MEDS: cefTRIAXone 1g/NS 100ml IVPB 100 ML IV SCH (09:30)
[2021-10-06] MEDS: loratadine 10mg tablet PO SCH (09:38)
[2021-10-06] MEDS: clopidogrel 75mg tablet PO SCH (09:38)
[2021-10-06] MEDS: furosemide 20MG tablet PO SCH (09:39)
[2021-10-06] MEDS: levoTHYROXINE 125mcg tablet PO SCH (09:39)
[2021-10-06] MEDS: clonazePAM 0.5mg tablet PO SCH ×2 (09:39→20:47)
[2021-10-06] MEDS: potassium chloride 8mEq ER tablet PO SCH (09:39)
[2021-10-06] MEDS: gabapentin 300mg capsule PO SCH ×3 (09:39→20:47)
[2021-10-06] MEDS: sertraline 50mg tablet PO SCH (09:40)
[2021-10-06] MEDS: budesonide 0.5mg/2ml UD nebule IH SCH ×2 (09:56→21:00)
--- NOTE | 2021-10-06 18:31 | NUR ---
Patient in room CICU 2009. I have received report from Ashley VELASCO and had the opportunity to ask questions and assume patient care.
--- NOTE | 2021-10-06 20:45 | NUR ---
Report called to receiving nurse Stacey VELASCO. Transferred via wheelchair with tele monitor on and o2 at 3L. Belongings brought with patient . Special Issues communicated to receiving nurse.
[2021-10-06] MEDS: mupirocin 2% nasal ointment 1gm UD NS SCH (20:48)
[2021-10-06] MEDS ORDERED: montelukast 10mg tablet PO SCH (21:00)
[2021-10-06] MEDS ORDERED: traZODone 50mg tablet PO SCH (21:00)
[2021-10-06] MEDS ORDERED: atorvastatin 20mg tablet PO SCH (21:00)
[2021-10-07 02:00] VITALS: BP 168/73
[2021-10-07] MEDS: ipratropium/albuterol 3ml nebule NEB SCH ×3 (02:17→11:00)
[2021-10-07] MEDS: methylPREDNISolone sod succ 125mg/2ml vial IV SCH ×3 (02:31→14:00)
[2021-10-07 06:00] VITALS: BP 162/82
[2021-10-07 06:52] LABS: BASOPHILS % (AUTO) 0.1 % (0-1); EOSINOPHILS % (AUTO) 0.1 % (0-6); HEMATOCRIT 36.1 % (35.0-45.0); HEMOGLOBIN 11.6 g/dl (12.0-16.0); LYMPHOCYTES # (AUTO) 0.8 X10'3 (1.1-4.8); LYMPHOCYTES % (AUTO) 7.2 % (21-51); MEAN CORPUSCULAR HEMOGLOBIN 29.3 PG (27.0-31.0); MEAN CORPUSCULAR VOLUME 91.6 FL (78-98); MEAN PLATELET VOLUME 9.4 FL (7.4-10.4); MONOCYTES # (AUTO) 0.3 X10'3 (0-0.9); MONOCYTES % (AUTO) 2.9 % (2-12); NEUTROPHILS # (AUTO) 10.2 X10'3 (1.8-7.7); NEUTROPHILS % (AUTO) 89.7 % (42-75); PLATELET COUNT 212 X10'3 (140-440); RED BLOOD COUNT 3.95 X10'6 (4.20-5.60); RED CELL DISTRIBUTION WIDTH 14.8 % (11.5-14.5); WHITE BLOOD COUNT 11.4 X10'3 (4.5-11.0)
[2021-10-07 07:02] LABS: ALANINE AMINOTRANSFERASE 74 U/L (12-78); ALKALINE PHOSPHATASE 111 IU/L (46-116); ANION GAP 5 (8-16); ASPARTATE AMINO TRANSFERASE 31 U/L (10-37); BILIRUBIN,TOTAL 0.4 MG/DL (0.1-1.0); BLOOD UREA NITROGEN 12 MG/DL (7-18); BUN/CREATININE RATIO 23.5 (6.6-38.0); CALCIUM 9.1 MG/DL (8.5-10.1); CHLORIDE 107 MMOL/L (99-107); CREATININE 0.51 MG/DL (0.40-0.90); GLUCOSE 148 MG/DL (70-104); MAGNESIUM 2.2 MG/DL (1.5-2.4); PHOSPHORUS 2.6 MG/DL (2.3-4.5); POTASSIUM 3.9 MMOL/L (3.5-5.1); SODIUM 145 MMOL/L (135-145); TOTAL CARBON DIOXIDE 32.8 MMOL/L (24-32); TOTAL PROTEIN 5.9 G/DL (6.4-8.2); eGFR > 90 ML/MIN
[2021-10-07] MEDS ORDERED: pantoprazole 40mg Tablet.DR PO SCH (07:30)
[2021-10-07] MEDS: budesonide 0.5mg/2ml UD nebule IH SCH (07:55)
--- NOTE | 2021-10-07 07:55 | NUR ---
PAGER ID: [phone] MESSAGE: Hemalatha Gallegos [id number] Pt. SBP has been elevated. No home med list able to be retrieved however in past pt. on Lopressor. last bp 165/89. lauren [id number] Addendum: 10/07/21 at 0757 by Lauren Bell RN Disregard note. error
--- NOTE | 2021-10-07 07:59 | NUR ---
PAGER ID: [phone] MESSAGE: Brinda Rodríguez [id number] Pt. SBP has been elevated. 179/ last bp. Loretta [phone]
[2021-10-07] MEDS: Meloxicam 15 MG TAB PO SCH (08:00)
[2021-10-07] MEDS: azithromycin/NS 500mg/250ml 250 ML IV SCH (08:00)
[2021-10-07] MEDS: mupirocin 2% nasal ointment 1gm UD NS SCH (08:00)
[2021-10-07] MEDS: loratadine 10mg tablet PO SCH (09:37)
[2021-10-07] MEDS: gabapentin 300mg capsule PO SCH ×2 (09:37→13:00)
[2021-10-07] MEDS: potassium chloride 8mEq ER tablet PO SCH (09:37)
[2021-10-07] MEDS: clonazePAM 0.5mg tablet PO SCH (09:37)
[2021-10-07] MEDS: sertraline 50mg tablet PO SCH (09:37)
[2021-10-07] MEDS: furosemide 20MG tablet PO SCH (09:38)
[2021-10-07] MEDS: clopidogrel 75mg tablet PO SCH (09:38)
[2021-10-07] MEDS: levoTHYROXINE 125mcg tablet PO SCH (09:38)
[2021-10-07] MEDS: cefTRIAXone 1g/NS 100ml IVPB 100 ML IV SCH (09:39)
[2021-10-07] MEDS ORDERED: IPRA3AMP31 IH (10:19)
[2021-10-07 11:00] VITALS: BP 129/75
[2021-10-07] MEDS ORDERED: PRED20TA PO ×2 (11:31)
--- NOTE | 2021-10-07 12:12 | NUR ---
PAGER ID: [phone] MESSAGE: Brinda Rodríguez [id number] pt. TSH 0.13 low. Do you want to change home med dose of levothyroxine before pt leaves? Loretta [phone]
--- NOTE | 2021-10-07 13:17 | NUR ---
/family/friends/ anyone hard to get ahold of. No physical address to arrange partnership ride. Pt. cant remember address. showed up to hospital to visit pt. No home with . states "cant she just stick her head out the window?" Educated on need for 84% on RA. Called CM. CM will attempt to have a tank delivered from [facility] where pt. gets her oxygen.
--- NOTE | 2021-10-07 13:30 | NUR ---
[employer]ur[employer] [facility] called about 02 delivery. Can deliver 02 but it will be an hour before they get here. Pt. and family updated.
--- NOTE | 2021-10-07 15:06 | NUR ---
DISCHARGE NOTE: Discharge paperwork reviewed with pt. and . Pt. aware she needs to f/u w/PCP within a week. She is aware to continue to wear her oxygen, and why oxygen is needed. PIV DC'd, cannula intact, pressure bandage applied. Tele removed and removed. 02 arrived to floor. Pt. here. Pt. wheeled down to her friend's private vehicle with 02 and belongings to discharge home.
[2021-10-08 06:26] LABS: HBSAG SCREEN Negative (Negative); HEP A AB, IGM Negative (Negative); HEPATITIS C ANTIBODY <0.1 s/co ratio (0.0-0.9)
== END 2021-10-07 15:11 | disposition home or self-care (01) | DRG 208 ==
LOC: ER 14:19 → ED HOLD 17:28 → CICU 2S 21:14 → PCU 3S 10-06 21:02
PROVIDERS: ADMIT Internal Medicine Critical Care Medicine; ATTEND Internal Medicine
PROC: 5A1935Z Respiratory Ventilation, Less than 24 Consecutive Hours (ICD-10-PCS; principal; 2021-10-04)
PROC: B3251ZZ Computerized Tomography (CT Scan) of Bilateral Common Carotid Arteries using Low Osmolar Contrast (ICD-10-PCS; 2021-10-04)
PROC: B32G1ZZ Computerized Tomography (CT Scan) of Bilateral Vertebral Arteries using Low Osmolar Contrast (ICD-10-PCS; 2021-10-04)
PROC: B32R1ZZ Computerized Tomography (CT Scan) of Intracranial Arteries using Low Osmolar Contrast (ICD-10-PCS; 2021-10-04)
PROC: B3281ZZ Computerized Tomography (CT Scan) of Bilateral Internal Carotid Arteries using Low Osmolar Contrast (ICD-10-PCS; 2021-10-04)
PROC: 06HM33Z Insertion of Infusion Device into Right Femoral Vein, Percutaneous Approach (ICD-10-PCS; 2021-10-04)
PROC: B54BZZA Ultrasonography of Right Lower Extremity Veins, Guidance (ICD-10-PCS; 2021-10-04)
PROC: 0BP1XDZ Removal of Intraluminal Device from Trachea, External Approach (ICD-10-PCS; 2021-10-04)
DX: J44.1 Chronic obstructive pulmonary disease with (acute) exacerbation (principal); J96.21 Acute and chronic respiratory failure with hypoxia; J96.22 Acute and chronic respiratory failure with hypercapnia; G45.9 Transient cerebral ischemic attack, unspecified; D64.9 Anemia, unspecified; E03.9 Hypothyroidism, unspecified; E78.5 Hyperlipidemia, unspecified; E87.6 Hypokalemia; F41.9 Anxiety disorder, unspecified; G89.4 Chronic pain syndrome; I10 Essential (primary) hypertension; M19.90 Unspecified osteoarthritis, unspecified site; Z20.822 Contact with and (suspected) exposure to COVID-19; M54.9 Dorsalgia, unspecified; R55 Syncope and collapse; F17.210 Nicotine dependence, cigarettes, uncomplicated; R74.01 Elevation of levels of liver transaminase levels; R79.89 Other specified abnormal findings of blood chemistry; Z79.02 Long term (current) use of antithrombotics/antiplatelets; Z79.899 Other long term (current) drug therapy; Z80.6 Family history of leukemia; Z82.41 Family history of sudden cardiac death; Z82.49 Family history of ischemic heart disease and other diseases of the circulatory system; Z82.5 Family history of asthma and other chronic lower respiratory diseases; Z83.3 Family history of diabetes mellitus; Z86.73 Personal history of transient ischemic attack (TIA), and cerebral infarction without residual deficits; Z91.19 Patient's noncompliance with other medical treatment and regimen; Z95.0 Presence of cardiac pacemaker; Z99.81 Dependence on supplemental oxygen; Z88.8 Allergy status to other drugs, medicaments and biological substances; Z90.49 Acquired absence of other specified parts of digestive tract; Z79.890 Hormone replacement therapy; R06.1 Stridor
CPT/HCPCS: 36415; 36600; 70450; 70496; 70498; 71045; 76700; 80053; 80061; 81001; 82803; 82948; 83036; 83605; 83735; 84100; 84145; 84443; 84478; 84484; 85018; 85025; 85610; 85730; 86709; 86803; 87040; 87081; 87340; 87635; 93306; 94002; 94003; 94640; 94760; 94799; 96374; 97116; 97161; 97530; 99291; 99292; C9113; C9803; G0378; J0456; J0696; J1953; J2704; J2930; J3010; J3480; J3490; J7030; Q9967

== ENCOUNTER 2022-04-16 13:59 | Outpatient (CLI) | payer MEDICARE, MEDICAID ==
[~2022-04-16 13:59] MED LIST changes: -AZIT-83 PO; +BLAC540C4 PO; -BUDE10.2 INH; +CLOP75TA33 PO; -CLOP75TA34 PO; -DEXA2TAB PO; +FLUT1BLS11 PO; -FLUT1DIS15 INH; -GABA-530 PO; +GABA300C PO; -LEVO100T PO; +LEVO125T8 PO; -LEVO75TA PO; +LORA10TA7 PO; -MELO-102 PO; -PANT20TA18 PO; +PANT40TA54 PO; +SERT-153 PO; -SERT25TA PO; +TRAZ-251 PO; -TRAZ-256 PO
== END 2022-04-16 23:59 | disposition home or self-care (01) ==
LOC: RAD 13:59
PROVIDERS: ATTEND Otolaryngology
DX: J38.02 Paralysis of vocal cords and larynx, bilateral (principal); R49.0 Dysphonia; R13.14 Dysphagia, pharyngoesophageal phase; K21.9 Gastro-esophageal reflux disease without esophagitis
CPT/HCPCS: 74230

== ENCOUNTER 2024-02-16 10:36 | Outpatient (CLI) | payer MEDICARE, OTHER ==
[~2024-02-16 10:36] MED LIST changes: +ASPI81TA53 PO; -CLON-528 PO; +CLON-850 PO; -FURO-150 PO; +METO-395 PO; +MONT-47 PO; -MONT10TA21 PO
== END 2024-02-16 23:59 | disposition home or self-care (01) ==
LOC: MRI 10:36
PROVIDERS: ATTEND Nurse Practitioner Family
DX: H53.2 Diplopia (principal); R29.818 Other symptoms and signs involving the nervous system; Z86.73 Personal history of transient ischemic attack (TIA), and cerebral infarction without residual deficits
CPT/HCPCS: 70551